=== PATIENT | female | born 1960 | race Caucasian/White ===

== ENCOUNTER → 2022-03-21 08:07 | Outpatient (CLI) | payer OTHER, SELFPAY ==
--- NOTE | ~2022-03-21 | MR_ITS ---
EXAMINATION: MR brain/brain stem wo con DATE: 03/21/2022 08:43 INDICATION: Other visual disturbances. TECHNIQUE: Magnetic resonance imaging (MRI) of the brain and brainstem was performed without intraven ous contrast. COMPARISON: None. FINDINGS: There are scattered areas of nonspecific increased T2-weighted signal intensity in the cere bral white matter, which is within normal limits for the patient's age. There is no intracranial hemo rrhage, acute infarction, or abnormal intracranial mass lesion. The ventricles are normal in size. Th ere is mild mucosal thickening in the ethmoid sinuses. The orbits are normal. The mastoid air cells a re normal. IMPRESSION: 1. Normal aging brain. Reviewed, dictated and finalized at location A. IMPRESSION: 1. Normal aging brain.
== END ==
PROVIDERS: PCP Family Medicine; Visit Provider Family Medicine
DX: H53.8 Other visual disturbances (principal); H53.47 Heteronymous bilateral field defects; G44.89 Other headache syndrome
CPT/HCPCS: 70551

== ENCOUNTER 2023-05-12 07:45 | Outpatient (CLI) | payer OTHER, SELFPAY ==
[2023-05-12 08:59] LABS: Anion Gap 7 mmol/L (8-16); Blood Urea Nitrogen 14 mg/dL (7-17); Carbon Dioxide 27 mmol/L (22-30); Chloride 105 mmol/L (98-107); Cholesterol 206 mg/dL (0-200); Estimated Glomerular Filt Rate 56; Glucose 99 mg/dL (65-110); HDL Direct 57 mg/dL; Potassium 4.2 mmol/L (3.4-5.0); Sodium 139 mmol/L (137-145); Triglycerides 102 mg/dL (<150)
[2023-05-12 09:09] LABS: LDL Cholesterol Direct 95 mg/dL
[2023-05-12 09:18] LABS: Hematocrit 46.2 % (37.0-47.0); Hemoglobin 14.9 g/dL (12.0-15.0); Mean Corpuscular HGB Conc 32.3 g/dl (32-36); Mean Corpuscular Hemoglobin 28.8 pg (26-34); Mean Corpuscular Volume 89.4 fl (80-100); Mean Platelet Volume 11.4 fl (7.4-10.4); Platelet Count Result 215 k/mm3 (150-375); Red Blood Count 5.17 M/mm3 (4.2-5.4); Red Cell Distribution Width 12.8 % (11.5-14.5)
[2023-05-12 09:30] LABS: Thyroid Stimulating Hormone 0.309 uIU/mL (0.465-4.680)
[2023-05-12 09:40] LABS: Vitamin D 25 Hydroxy 53.8 ng/mL
[2023-05-17 13:30] LABS: Testosterone Free 3.6 pg/mL (0.1-6.4); Testosterone Total 30 ng/dL (2-45)
== END 2023-05-12 07:46 | disposition home or self-care (01) ==
LOC: ANHLAB 07:47
PROVIDERS: PCP Family Medicine; Visit Provider Family Medicine
DX: E55.9 Vitamin D deficiency, unspecified (principal); N28.9 Disorder of kidney and ureter, unspecified; L65.9 Nonscarring hair loss, unspecified; F41.9 Anxiety disorder, unspecified; Z13.220 Encounter for screening for lipoid disorders
CPT/HCPCS: 36415; 80048; 80061; 82306; 84402; 84403; 84443; 85027

== ENCOUNTER 2024-02-20 09:53 | Outpatient (CLI) | payer OTHER, SELFPAY ==
--- NOTE | ~2024-02-20 | XR_ITS ---
EXAMINATION: XR chest 2V DATE: 02/20/2024 10:10 INDICATION: Other specified cough. TECHNIQUE: Frontal and lateral views of the chest were obtained. COMPARISON: None. FINDINGS: There is mild atelectasis at right lung base. There is no pneumonia, pleural effusion, or p neumothorax. The heart size is normal. IMPRESSION: 1. Mild atelectasis at right lung base. Reviewed, dictated and finalized at location A.
== END 2024-02-20 09:54 ==
PROVIDERS: PCP Family Medicine; Visit Provider Nurse Practitioner Adult Health
DX: J98.11 Atelectasis (principal); R05.8 Other specified cough
CPT/HCPCS: 71046

== ENCOUNTER 2024-02-29 15:25 | Outpatient (CLI) | payer OTHER, SELFPAY ==
--- NOTE | ~2024-02-29 | CT_ITS ---
EXAMINATION: CT sinus wo con DATE: 02/29/2024 15:38 INDICATION: Deviated nasal septum TECHNIQUE: Computed tomography (CT) of the paranasal sinuses was performed without contrast. Iterativ e reconstruction technique was employed. Exam dose: 261.43 mGy-cm total exam DLP. COMPARISON: None FINDINGS: There is leftward deviation of the nasal septum. Symmetric moderate soft tissue prominence of the nasal turbinates. Prominent intralamellar cell of ri ght middle nasal turbinate. There is partial opacification of the left ethmoid bulla and minimal soft tissue thickening near the maxillary ostium on each side. The ostiomeatal units are otherwise patent. Mild mucoperiosteal thickening of the floor of both maxillary sinuses and minimally compresses agains t the lateral wall of the right axillary sinus. There is mild inferomedial medical. Thickening of the left frontal sinus and patchy soft tissue thickening in ethmoid air cells bilateral ly. There is slight focal lytic opacification along the anteromedial wall of left sphenoid sinus. No sinus fluid levels are noted. The mastoid air cells are well developed and aerated bilaterally. IMPRESSION: Leftward deviation nasal septum Symmetric moderate soft tissue prominence of the nasal turbinates. Prominent intralamellar cell of ri ght middle nasal turbinate Partial opacification of left ethmoid bulla and minimal soft tissue thickening at the maxillary ostia Mild right inferolateral and left inferior maxillary mucoperiosteal thickening Slight inferomedial left frontal and anteromedial left sphenoid mucoperiosteal thickening Reviewed, dictated and finalized at Location A. Reviewed, dictated and finalized at location B. IMPRESSION: Leftward deviation nasal septum Symmetric moderate soft tissue prominence of the nasal turbinates. Prominent in tralamellar cell of right middle nasal turbinate Partial opacification of left ethmoid bulla and minimal soft tissue thickening at the maxillary ostia Mild right inferolateral and left inferior maxillary mucoperiosteal thickening Slight inferomedial left frontal and anteromedial left sphenoid mucoperiosteal thickening
== END 2024-02-29 15:26 ==
LOC: MICIMG 15:27
PROVIDERS: PCP Family Medicine; Visit Provider Otolaryngology
DX: J34.2 Deviated nasal septum (principal); J34.89 Other specified disorders of nose and nasal sinuses
CPT/HCPCS: 70486

== ENCOUNTER 2024-03-05 16:21 | Outpatient (CLI) | payer OTHER, SELFPAY ==
--- NOTE | ~2024-03-05 | XR_ITS ---
EXAMINATION: XR chest 2V DATE: 03/05/2024 16:30 INDICATION: Atelectasis. Cough and shortness of breath. TECHNIQUE: Frontal and lateral views of the chest were obtained. COMPARISON: Chest 2 views 02/20/2024 FINDINGS: There is mild atelectasis at right lung base. No pleural effusion or pneumothorax. The hear t size is normal. IMPRESSION: 1. Mild atelectasis at right lung base. Reviewed, dictated and finalized at location E.
== END 2024-03-05 16:22 ==
LOC: MICIMG 16:22
PROVIDERS: PCP Family Medicine; Visit Provider Nurse Practitioner Adult Health
DX: J98.11 Atelectasis (principal)
CPT/HCPCS: 71046

== ENCOUNTER 2024-03-14 14:04 | Outpatient (CLI) | payer OTHER, SELFPAY ==
--- NOTE | ~2024-03-14 | CT_ITS ---
EXAMINATION:CT diagnostic chest wo con DATE: 03/14/2024 14:16 INDICATION: Shortness of breath. Atelectasis. TECHNIQUE: Computed tomography (CT) of the chest was performed without intravenous contrast. Automate d exposure control and iterative reconstruction technique were employed. The dose-length product (DLP ) was 205.36 mGy-cm. COMPARISON: Chest 2 views 03/05/2024 FINDINGS: The lungs demonstrate mild atelectasis. There is mild bronchiectasis in right lower lobe an d right middle lobe. No pleural effusion. The heart size is normal. No pericardial effusion. There is a small sliding hiatal hernia. There is moderate thoracic spondylosis. IMPRESSION: 1. Mild bronchiectasis in right lower lobe and right middle lobe. 2. Small sliding hiatal hernia. Reviewed, dictated and finalized at location A.
== END 2024-03-14 14:05 ==
LOC: MICIMG 14:05
PROVIDERS: PCP Nurse Practitioner Adult Health; Visit Provider Nurse Practitioner Adult Health
DX: J98.11 Atelectasis (principal); K44.9 Diaphragmatic hernia without obstruction or gangrene; R91.8 Other nonspecific abnormal finding of lung field
CPT/HCPCS: 71250

== ENCOUNTER 2024-03-31 13:26 | Outpatient (CLI) | payer OTHER, SELFPAY ==
--- NOTE | 2024-03-31 16:08 | P.PCNPFT_ITS ---
PFT Procedure Performed PFT Procedure Performed Plethysmography (Lung Vol) Diffusing Cap (DLCO) Flow Vol Loop Spirometry w/o Bronchodil PFT Interpretation This is a pulmonary function test with spirometry, plethysmography and diffusing capacity. The test was performed and results interpreted in accordance with the 2019 and 2005 ATS/ERS Task Force guidelines respectively using the Global Lung Function Initiative-2012 reference equations. Patient demonstrated good effort and cooperation. Reproducibility criteria were met. The quality of the spirometry maneuver was Grade A. Findings: Spirometry: there is decreased maximal expiratory airflow at low lung volumes with concave expiratory flow tracing. The contour the inspiratory flow tracing is normal. The FVC is 2.21 L, 85% predicted. The FEV1 is 1.53 L, 75% predicted. The FEV1: FVC ratio 69%. Plethysmography: The total lung capacity is 4.11 L, 95% predicted. The functional residual capacity is 2.33 L, 97% predicted. The residual volume is 1.90 L, 107% predicted. Diffusing capacity: The diffusing capacity unadjusted for hemoglobin and carboxyhemoglobin is 13.5, 70% predicted. The diffusing capacity adjusted for alveolar volume is 4.24, 91% predicted. Impression: The spirometry is normal without evidence of an obstructive ab normality. The lung volumes are normal. The diffusing capacity is normal. There are no prior studies for comparison
== END 2024-03-31 13:27 | disposition home or self-care (01) ==
LOC: ANHPFT 13:26
PROVIDERS: PCP Family Medicine; Visit Provider Nurse Practitioner Adult Health
DX: J98.11 Atelectasis (principal); R06.02 Shortness of breath; R05.8 Other specified cough
CPT/HCPCS: 94375; 94726; 94729

== ENCOUNTER 2024-04-17 12:28 | Outpatient (CLI) | payer OTHER, SELFPAY ==
--- NOTE | 2024-04-17 13:05 | ECHO_ITS ---
Patient Info Name: Julianna Billingsley Age: 63 years : 1960 Gender: Female Ht: 59 in Wt: 160 lbs BSA: 1.77 m2 HR: 66 bpm BP: 114 / 76 mmHg Technical Quality: Fair Exam Date: 04/17/2024 1:11 PM Exam Location: [facility] Patient Status: Outpatient Admit Date: 04/17/2024 Staff Ordering Physician: Bear Ulloa APRN Excel Specialist: Alpesh Alexander RDCS Attending Provider: Bear Ulloa APRN Referring Physician: Artemio ESCOBAR; Exam Type: CA echo doppler color flow Study Info Indications R06.09 - Other forms of dyspnea R60.9 - Edema, unspecified Complete two-dimensional, color flow and Doppler transthoracic echocardiogram is performed. Strain analysis performed. Summary 1. Complete two-dimensional, color flow and Doppler transthoracic echocardiogram is performed. 2. Left ventricular chamber dimension is normal. 3. Left ventricular systolic function is normal, estimated at 60-65%. 4. The left ventricular diastolic function is normal. 5. Global longitudinal strain is slightly abnormal at -16.2%. 6. There is trace mitral valve regurgitation. 7. There is mild tricuspid valve regurgitation. 8. No pulmonary hypertension, estimated pulmonary arterial systolic pressure is 30 mmHg. Left Ventricle Tissue doppler E/e' is not measured. Global longitudinal strain is slightly abnormal at -16.2%. Left ventricular chamber dimension is normal. Left ventricular systolic function is normal, estimated at 60-65%. The left ventricular diastolic function is normal. Right Ventricle Right ventricular chamber dimension is normal. Right ventricular systolic function is normal. Left Atria Left atrial chamber dimension is normal. Right Atria Right atrial chamber dimension is normal. Aortic Valve The aortic valve is trileaflet. There is no aortic valve stenosis. There is no aortic valve regurgitation. Pulmonic Valve There is no pulmonic regurgitation. Mitral Valve There is no mitral valve stenosis. There is trace mitral valve regurgitation. Tricuspid Valve There is mild tricuspid valve regurgitation. No pulmonary hypertension, estimated pulmonary arterial systolic pressure is 30 mmHg. Pericardium/Pleural There is no pericardial effusion. Inferior Vena Cava Normal inferior vena cava with >50% collapse upon inspiration consistent with normal right atrial pressure, 5 mmHg. Aorta The aortic root size at the sinus of Valsalva is normal. Left Ventricular Outflow Tract Name Value Normal LVOT 2D LVOT Diameter 2.0 cm LVOT Doppler LVOT Peak Gradient 2 mmHg LVOT Mean Gradient 1 mmHg LVOT VTI 16 cm LVOT VTI/AV VTI Ratio 0.9 LVOT Stroke Volume 49 ml LVOT CO 3.3 l/min LVOT CI 1.8 l/min/m2 Pulmonic Valve Name Value Normal RVOT Doppler RVOT Peak
== END 2024-04-17 12:29 | disposition home or self-care (01) ==
PROVIDERS: PCP Family Medicine; Visit Provider Nurse Practitioner Family
DX: R06.09 Other forms of dyspnea (principal); R60.9 Edema, unspecified; I07.1 Rheumatic tricuspid insufficiency
CPT/HCPCS: 93306